=== PATIENT | female | born 1970 | race Caucasian/White ===

== ENCOUNTER → 2023-06-09 11:52 | Outpatient (REF) | payer BC, SELFPAY | LOC: WDC 11:52 | PROVIDERS: ATTENDING PHYSICIAN Obstetrics & Gynecology; FAMILY PHYSICIAN Internal Medicine | DX: Z12.31 Encounter for screening mammogram for malignant neoplasm of breast (principal) | CPT/HCPCS: 77063; 77067 ==

== ENCOUNTER → 2024-06-12 12:04 | Outpatient (REF) | payer BC, SELFPAY | LOC: WDC 12:04 | PROVIDERS: ATTENDING PHYSICIAN Obstetrics & Gynecology; FAMILY PHYSICIAN Internal Medicine | DX: Z12.31 Encounter for screening mammogram for malignant neoplasm of breast (principal) | CPT/HCPCS: 77063; 77067 ==

== ENCOUNTER 2024-10-03 01:40 | Emergency (ER) | payer BC, SELFPAY ==
[2024-10-03 01:56] VITALS: BP 160/106
[2024-10-03 04:24] VITALS: BP 148/83
[2024-10-03 04:34] LABS: Hematocrit 41.2 % (37.0-47.0); Hemoglobin 14.2 g/dL (12.0-16.0); Mean Corp Hgb Conc. 34.5 g/dL (33.0-37.0); Mean Corpuscular Volume 86.6 fL (81.0-99.0); Nucleated Red Blood Cells % 0 %; Platelet Count 237 10^3/uL (130-400); Red Cell Dist. Width 13.1 % (11.5-14.5)
[2024-10-03 04:46] LABS: HCG, Serum Qualitative Screen Negative
[2024-10-03 04:49] LABS: ALT (SGPT) 15 U/L (0-35); AST (SGOT) 17 U/L (14-36); Albumin 4.5 g/dl (3.5-5.0); Alkaline Phosphatase 70 U/L (38-126); Blood Urea Nitrogen 22 mg/dl (7-17); Calcium 9.7 mg/dl (8.4-10.2); Carbon Dioxide 25 mmol/L (22-30); Chloride 105 mmol/L (98-107); Glucose 105 mg/dl (70-99); Lipase 90 U/L (23-300); Potassium 4.2 mmol/L (3.5-5.1); Sodium 139 mmol/L (135-145); Total Protein 7.8 g/dl (6.3-8.2); eGFR > 60.00
[2024-10-03 04:58] LABS: Troponin I < 0.012 ng/ml
[2024-10-03 05:00] VITALS: BP 155/76
[2024-10-03] MEDS: CARAFATE SUSPENSION 1 GM PO (05:34)
[2024-10-03] MEDS: PROTONIX 40 MG PO (05:34)
--- NOTE | 2024-10-03 05:42 | ED.GENMED ---
History of Present Illness
General
Chief Complaint: Chest Pain
Source: patient
Exam Limitations: none
Time Seen by Provider: 10/03/24 04:49
Nursing documentation reviewed up to this point in time: agreed with
History of Present Illness
History of Present Illness:
Note:
CHIEF COMPLAINT(S)
Persistent chest discomfort, described as gnawing and worsening after meals.
HISTORY OF PRESENT ILLNESS
The patient is a 54-year-old female with pmh of GERD, anemia, presents with with persistent chest discomfort that began around 8:30 PM following dinner. The pain reminded her of past gallbladder attacks but is different because her gallbladder has
been removed. She denies abdominal pain, epigastric pain. The discomfort is described as a gnawing sensation, sometimes subsiding, but is persistent. It worsens when she lies down, requiring her to sit up to manage discomfort. The patient initially
attempted self-treatment with water and Famotidine 40 mg, suspecting heartburn, but had no relief. The pain does not radiate to the back. The patient also reports increased discomfort if lying on the left side. She has a history of psoriatic
arthritis, which flared up in August following alcohol consumption at a concert, as well as persistent NSAID use resulting in significant ankle swelling for several days. The patient mentioned using steroids for this flare-up.She denies dark tarry
stools, hematemesis. She denies personal hx of cardiac disease. Patient has no associated shortness of breath, palpitations, long distance travel.
PAST MEDICAL AND SURGICAL HISTORY
The patient has a history of a cholecystectomy. She also has a history of psoriatic arthritis, which flares occasionally.
FAMILY HISTORY
The patients mother had a heart attack at the age of 67. An aunt also suffered a heart attack last year.
SOCIAL HISTORY
The patient denies smoking and reports infrequent alcohol consumption, but she experienced significant ankle swelling after alcohol consumption in the past.
REVIEW OF SYSTEMS
- Gastrointestinal: Persistent gnawing upper abdominal pain, worsens after meals and when lying down
- Musculoskeletal: History of psoriatic arthritis with recent flare-ups.
- Cardiovascular: Family history of heart disease mentioned.
PHYSICAL EXAM
General: Alert, no acute distress.
Skin: Warm, dry.
Head: Normocephalic, atraumatic.
Neck: Supple, trachea midline.
Eyes, Ears, Nose, Mouth, and Throat: Oral mucosa moist.
Cardiovascular: Normal peripheral perfusion, no edema. Regular rate and rhythm, no murmurs, no tenderness noted to external chest wall
Respiratory: Respirations are non-labored.
Gastrointestinal: Abdomen nondistended and nontender to palpation.
Neurological: Alert and oriented to person, place, time, and situation, no focal neurological deficit observed.
Psychiatric: Cooperative, appropriate mood, and affect.
PLAN
- Give the patient a gastrointestinal medication to assess its effectiveness in alleviating symptoms.
- Conduct a repeat ecg and troponin test to rule out cardiac issues.
- Perform a chest X-ray to exclude pneumothorax or other thoracic emergencies.
- Continue monitoring the patient for any changes in symptoms.
DIFFERENTIAL DIAGNOSIS
The Differential Diagnosis includes, in no particular order and is not limited to:
1. Gastroesophageal reflux disease (GERD)
2. Peptic ulcer disease
3. Esophagitis
4. Cardiac ischemia
5. Atypical angina or myocardial infarction
6. Pancreatitis
7. Costochondritis
8. Peptic ulcer disease
9. Thoracic aortic dissection
10. Pneumothorax
CHART REVIEW
Reviewed colonoscopy 03/11/23 patient seen for colonoscopy a few small-mouthed diverticula were found in the sigmoid colon and descending colon with internal hemorrhoids were found during retroflexion.
UPDATE
6:54 am-- Patient feels markedly improved with carafate her discomfort is minimal, will await repeat troponin
Suspect esophagitis
MDM/DISPOSITION
The patient is a 54-year-old female with pmh of GERD, anemia, presents with with persistent chest discomfort that began around 8:30 PM following dinner. The pain reminded her of past gallbladder attacks but is different because her gallbladder has
been removed. Her physical exam is unremarkable. Suspect esophagitis/GERD considering pain worse with lying down, improvement with carafate, started after a heavy meal. Patient was ruled out for ACS with 2 negative troponins and no acute changes on
ecg. She was cleared by cardiology in the past. Her lipase normal. CXR unremarkable. Patient will be restarted on PPI trial. Tolerated pantroprazole well in the ER. Discussed follow up with GI.
Past History
Past History
ED Past Medical History: Other (Rheumatoid arthritis)
ED Past Surgical History: Cholecystectomy
Social History
Tobacco: Non-smoker
Employment: Employed
Phy Exam
Physical Exam
Physical Exam:
see hpi
Scores
Heart Score for Chest Pain Patients
STEMI patient?: No
History: Slightly or Non-Suspicious
ECG: Normal
Age: >45 - <65 years
Risk Factors: 1 or 2 Risk Factors
Troponin: </= Normal Limit
Heart Score for Chest Pain Patients: 2
Heart Score Risk: 2.5% MACE over next 6 weeks
Course
Orders/Labs/Results
Orders:
Orders
10/03/24 01:47
EKG [Electrocardiogram (*1)] Urgent
Reason for Study: Chest Pain
10/03/24 01:48
EKG- Treatment ONCE
10/03/24 04:03
Test Result ONCE
10/03/24 04:20
Complete Blood Count/With Diff Urgent
Comprehensive Metabolic Panel Urgent
HCG, Serum Qualitative Screen Urgent
Comment: Notify provider if positive test present
Lipase Urgent
Troponin I Urgent
10/03/24 05:02
Sucralfate Suspension [Carafate Suspension] 1 gm PO NOW STA
CR Chest - 2 Views Urgent
Comment:
Reason For Exam: chest pain
10/03/24 05:04
Pantoprazole [Protonix] 40 mg PO NOW STA
10/03/24 07:00
Electrocardiogram (*1) Urgent
Reason for Study: Chest Pain
10/03/24 07:02
Troponin I Urgent
Abnormal Lab Results
10/03/24
04:20
MPV 10.5 H fL
(7.4-10.4)
BUN 22 H mg/dl
(7-17)
Glucose 105 H mg/dl
(70-99)
10/03/24 04:20
10/03/24 04:20
Vital Signs
Initial and Last Documented VS:
Initial Vital Signs
Temp Pulse Resp BP Pulse Ox
98.5 F 82 20 160/106 96
10/03/24 01:56 10/03/24 01:56 10/03/24 01:56 10/03/24 01:56 10/03/24 01:56
Last Documented Vital Signs
Temp Pulse Resp BP Pulse Ox
98.5 F 104 17 131/69 97
10/03/24 01:56 10/03/24 08:00 10/03/24 08:00 10/03/24 08:00 10/03/24 08:00
*Pulse Oximetry
SaO2: 100
Oxygen Mode of Delivery: Room air
Patient hypoxic: no
*Critical Care Note
Total Time (30-74mins, 75-104mins- exclusive of procedures): Not Applicable
ED Attending Note
-
Portions of this chart may have been created with voice recognition software.� Occasional wrong word or��sound alike� substitutions may have occurred due to the inherent limitations of voice recognition software.
Discharge Plan
Departure
Patient Disposition: Home (Routine Discharge)
Date of Disposition: 10/03/24
Time of Disposition: 07:34
Patient with high blood pressure during this ER visit?: Yes
Condition: Good
Discharge Problem:
GERD (gastroesophageal reflux disease)
Instructions: Acid Reflux and GERD in Adults (DC), BLOOD PRESSURE
Prescriptions:
New
pantoprazole 20 mg tablet,delayed release (DR/EC)
20 mg PO DAILY 14 Days Qty: 14 0RF
sucralfate [Carafate] 100 mg/mL suspension
10 ml PO BID Qty: 400 0RF
No Action
hydrocodone-acetaminophen [Vicodin] 1 EACH tablet
1 ea PO Q6HPRN PRN (Reason: pain) Qty: 10 0RF
Referrals:
d [Other]
Niesha Meraz MD [Active, Gastroenterology] - Call in 1-3 days for appt
Paige Orourke MD [Family Provider, Internal Medicine]
Activity Restrictions/Additional Instructions:
Pantoprazole has been sent to your pharmacy. Please take one tablet once daily for 2 weeks. Should you have break through symptoms, you can take a dose of Carafate. Please ensure dose of Carafate is taken at least 30 minutes after the pantoprazole.
Please follow-up with your primary care provider.
PLEASE RETURN TO THE ER SHOULD YOU DEVELOP CHEST PAIN, SHORTNESS OF BREATH, VOMITING BLOOD, DARK TARRY STOOLS, ARM PAIN, LEFT ARM PAIN, JAW PAIN, FEVERS OR CHILLS, OR ANY OTHER SIGNS OR SYMPTOMS WORRISOME TO YOU.
Interventions
Interventions:
*Risk Screen - Suicide Last Done: 10/03/24 01:56
*General Assessment Last Done: 10/03/24 04:05
*Neglect/Abuse Screening Last Done: 10/03/24 04:05
*ED- Fall Risk Assessment Last Done: 10/03/24 07:04
*ED COVID-19 Vaccine History Last Done: 10/03/24 07:04
*Nursing Disposition Last Done: 10/03/24 08:22
ED- Cardiac Assessment Last Done: 10/03/24 04:05
Discharge Date and Time
Discharge Date/Time: 10/03/24 08:23
Print Language: [id number]
[2024-10-03 06:08] VITALS: BP 143/67
[2024-10-03 07:00] VITALS: BP 128/76
[2024-10-03 07:32] LABS: Troponin I < 0.012 ng/ml
[2024-10-03 08:00] VITALS: BP 131/69
== END 2024-10-03 08:23 | disposition home or self-care (01) ==
LOC: EMR 01:40
PROVIDERS: Physician Assistant; EMERGENCY PHYSICIAN Emergency Medicine; FAMILY PHYSICIAN Internal Medicine
DX: K21.9 Gastro-esophageal reflux disease without esophagitis (principal); R03.0 Elevated blood-pressure reading, without diagnosis of hypertension; L40.50 Arthropathic psoriasis, unspecified; M06.9 Rheumatoid arthritis, unspecified
CPT/HCPCS: 99284; 71046; 80053; 83690; 84484; 84703; 85025; 93005